=== PATIENT | female | born 1975 | race Caucasian/White ===

== ENCOUNTER 2017-09-05 17:56 | Emergency (ER) | payer OTHER ==
[2017-09-05 18:23] VITALS: BP 119/68; PULSE 89; TEMP 98.4; BMI 25.8
--- NOTE | 2017-09-05 18:29 | PDOC ---
Rapid Medical Evaluation Time Seen by Provider: 09/05/17 18:19 Medical Evaluation: 09/05/17 18:20 Pt c/o: left pelvic pain no discharge , lmp normal, lbm this am Pt on brief exam: vss Pt ordered for: ua, upreg P to proceed to the ED: Discharge Disposition - Diagnosis Pelvic pain - Referrals - Patient Instructions - Post Discharge Activity
[2017-09-05 19:14] LABS: URINE APPEARANCE CLOUDY; URINE BILIRUBIN NEGATIVE (NEGATIVE); URINE BLOOD NEGATIVE (NEGATIVE); URINE COLOR YELLOW; URINE GLUCOSE (UA) NEGATIVE (NEGATIVE); URINE KETONE NEGATIVE (NEGATIVE); URINE LEUK ESTERASE NEGATIVE (NEGATIVE); URINE NITRITE NEGATIVE (NEGATIVE); URINE PROTEIN NEGATIVE (NEGATIVE); URINE UROBILINOGEN NEGATIVE mg/dL (0.2-1.0)
[2017-09-05] MEDS ORDERED: ONDANSETRON *ODT* 4 MG TABLET SL ONE (20:47)
[2017-09-05] MEDS ORDERED: ONDANSETRON *ODT* 4 MG TABLET ONE (20:48)
--- NOTE | 2017-09-05 20:56 | PDOC ---
History of Present Illness - General Chief Complaint: Respiratory Stated Complaint: COLD SYMPTOMS Time Seen by Provider: 09/05/17 18:19 History Source: Patient Exam Limitations: No Limitations - History of Present Illness Initial Comments: 09/05/17 20:47 Ration of general body aches, low-grade fevers and chills, cough that has resolved since Saturday an onset of the symptoms were Saturday. States had onset of mild nausea yesterday and worsened today with some diarrhea associated. Denies continued fevers, has had no vomiting but feels nauseous. Denies any vaginal complaints, states had one diarrhea stool today. No one else at home is sick currently. Timing/Duration: reports: changing over time, getting worse Severity: reports: mild, moderate Associated Symptoms: reports: denies symptoms, dizziness, fever/chills, nasal congestion. denies: cough Past History - Travel Traveled outside of the country in the last 30 days: No Close contact w/someone who was outside of country & ill: No - Past Medical History Allergies/Adverse Reactions: Allergies Allergy/AdvReac Type Severity Reaction Status Date / Time No Known Allergies Allergy Verified 09/05/17 18:23 Home Medications: Ambulatory Orders Ondansetron [Zofran *Odt*] 4 mg SL PRN PRN #14 od.tablet 09/05/17 COPD: No Other medical history: DENIES MEDICAL HX - Suicide/Smoking/Psychosocial Hx Smoking History: Never smoked Hx Alcohol Use: No Drug/Substance Use Hx: No Review of Systems - Review of Systems Able to Perform ROS?: Yes Is the patient limited Danish proficient: Yes Constitutional: Yes: Symptoms Reported, See HPI, Fever, Loss of Appetite, Malaise HEENTM: Yes: Symptoms Reported, See HPI, Nose Congestion. No: Throat Pain Respiratory: Yes: Symptoms reported, See HPI, Cough ABD/GI: Yes: Symptoms Reported, Nausea, Abdominal cramping. No: Vomiting Musculoskeletal: Yes: Symptoms Reported Integumentary: No: Symptoms Reported All Other Systems: Reviewed and Negative *Physical Exam - Vital Signs Last Vital Signs Temp Pulse Resp BP Pulse Ox 98.4 F 89 16 119/68 97 09/05/17 18:20 09/05/17 18:20 09/05/17 18:20 09/05/17 18:20 09/05/17 18:20 - Physical Exam General Appearance: Yes: Nourished, Appropriately Dressed, Apparent Distress HEENT: positive: JIMBO, Normal ENT Inspection, TMs Normal, Pharynx Normal, Rhinorrhea Neck: positive: Supple. negative: Tender Respiratory/Chest: positive: Lungs Clear Gastrointestinal/Abdominal: positive: Normal Bowel Sounds, Soft. 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 We'll treat with Zofran and conservative measures *DC/Admit/Observation/Transfer Diagnosis at time of Disposition: Influenzal acute upper respiratory infection - Discharge Dispostion Disposition: HOME Condition at time of disposition: Stable Admit: No - Referrals - Patient Instructions Printed Discharge Instructions: DI for Viral Gastroenteritis -- Adult Additional Instructions: Rest, drink lots of fluids: Teas, water, soups [place] lucie, carbonated beverages for the bubbles May try peppermint teas Avoid heavy , spicy or fatty foods until symptoms have resolved Avoid contact with others until fevers and symptoms resolved Lots of handwashing and good hygiene Continue [id number] medications for symptomatic relief Tylenol or Motrin for fever and pain May use Zofran-one tablet dissolved on tongue as needed for nauseousness. May repeat times one every 8 hours Followup with private physician in one to 2 days as needed Return to emergency department for worsened symptoms, fevers, dehydration - Post Discharge Activity
== END 2017-09-05 21:03 | disposition home or self-care (01) ==
LOC: JERFT 17:56
DX: J11.1 Influenza due to unidentified influenza virus with other respiratory manifestations (principal)
CPT/HCPCS: 81003; 87086; 99281-25